=== PATIENT | male | born 2000 | race Hispanic/Latino ===

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

== ENCOUNTER 2021-01-22 | Emergency (ER) | payer OTHER ==
[~2021-01-22] MED LIST changes: +ZOFRAN4 M1 PO
[2021-01-22] MEDS ORDERED: BACTROBAN TOP (15:53)
== END 2021-01-22 16:15 | disposition home or self-care (01) | DRG 935 ==
PROC: 2W2DX4Z Dressing of Left Lower Arm using Bandage (ICD-10-PCS; principal; 2021-01-22)
DX: T22.212A Burn of second degree of left forearm, initial encounter (principal); T31.0 Burns involving less than 10% of body surface; X01.8XXA Other exposure to uncontrolled fire, not in building or structure, initial encounter; Y93.89 Activity, other specified; Y92.89 Other specified places as the place of occurrence of the external cause; Y99.0 Civilian activity done for income or pay